=== PATIENT | male | born 1985 | race African-American/Black ===

== ENCOUNTER → 2020-11-13 | Outpatient (CLI) | payer OTHER | END | disposition home or self-care (01) | LOC: RAD 14:37 | PROVIDERS: ATTEND Family Medicine | DX: J18.9 Pneumonia, unspecified organism (principal); J45.40 Moderate persistent asthma, uncomplicated | CPT/HCPCS: 71046 ==

== ENCOUNTER 2020-12-02 09:25 | Emergency (ER) | payer OTHER ==
[~2020-12-02] VITALS: Ht 190.5 cm; Wt 122.9 kg
--- NOTE | 2020-12-02 09:55 | NUR ---
Pt ambulatory to room from triage with steady gait, changed into gown and RN and PA student assessments completed. PA student notified of SIRS criteria met with HR>90 and RR>20 without fever.
[2020-12-02] MEDS ORDERED: ALBU8.5H8 INH (10:17)
[2020-12-02] MEDS ORDERED: HYDR25TA6 PO (10:17)
[2020-12-02] MEDS ORDERED: LOSA100T14 PO (10:17)
[2020-12-02] MEDS ORDERED: VERA100C4 PO (10:17)
--- NOTE | 2020-12-02 10:25 | NUR ---
D/C instructions given, pt speaking to [facility] customer service receptionist now to set follow up appt, and registration at bedside to complete registration before pt leaves dept. Pt states understanding of all d/c instructions.
[2020-12-02 10:26] VITALS: BP 137/74
== END 2020-12-02 10:28 | disposition home or self-care (01) ==
LOC: ED 10:25
DX: J18.9 Pneumonia, unspecified organism (principal); R94.31 Abnormal electrocardiogram [ECG] [EKG]
CPT/HCPCS: 93005; 99283